=== PATIENT | female | born 1990 | race Caucasian/White ===

== ENCOUNTER 2016-12-13 16:41 | Emergency (ER) | payer OTHER ==
[~2016-12-13] VITALS: Ht 154.9 cm; Wt 100.7 kg
[~2016-12-13 16:41] MED LIST: NAPR500T3 PO; TRAM50TA PO
[2016-12-13 16:52] VITALS: BP 144/81
[2016-12-13] MEDS ORDERED: CLIN150C14 PO (17:01)
[2016-12-13] MEDS ORDERED: TRAM50TA PO (17:01)
--- NOTE | 2016-12-13 17:02 | PHYS DOC ---
Past History Past Medical History: Other Past Surgical History: No Surgical History Alcohol Use: None Drug Use: None Adult General Chief Complaint Chief Complaint: DENTAL PROBLEM HPI HPI Patient is a 26-year-old female presenting to the emergency department for evaluation of right lower molar pain that started today status post biting a piece of meat and a chip of her tooth came off. She says that she thinks that there is some pus that came out. There is no swelling to her mouth and she denies any fevers chills nausea vomiting. Review of Systems Review of Systems Constitutional: Denies fever or chills [] Allergies Allergies Allergies Coded Allergies Type Severity Reaction Last Updated Verified Penicillins Adverse Reaction Intermediate 02/28/14 Yes Sulfa (Sulfonamide Antibiotics) Adverse Reaction Intermediate 02/28/14 Yes promethazine Adverse Reaction Intermediate 02/28/14 Yes Physical Exam Physical Exam Constitutional: Well developed, well nourished, no acute distress, non-toxic appearance. [] HENT: tooth 31 does have dental fracture with some pulp exposed. There is no periapical abscess. Mild amount of erythema but no swelling noted. EKG EKG [] Radiology/Procedures Radiology/Procedures [] Course & Med Decision Making Course & Med Decision Making Patient with dental fracture and recommended dental paste to help cover the socket. According to [facility] appears that she is getting prescribed tramadol but she denies having any tramadol so I will her prescription for 15 pills of tramadol and told her to take ibuprofen. She says that she hasn't appointment at the dentist in 2 weeks by told her to try calling next week to see if she can get her appointment moved up. Patient told to come back with worsening pain swelling fevers or other general concerns. She verbalized understanding of the above plan. Dragon Disclaimer Dragon Disclaimer This chart was dictated in whole or in part using Voice Recognition software in a busy, high-work load, and often noisy Emergency Department environment. It may contain unintended and wholly unrecognized errors or omissions. Departure Departure: Impression: Primary Impression: Fracture, tooth Disposition: HOME, SELF-CARE Condition: GOOD Referrals: PCP,NO (PCP) Patient Instructions: Dental Fracture Additional Instructions: TAKE 400MG OF IBUPROFEN EVERY 6 HOURS AND THE TRAMADOL FOR BREAKTHROUGH PAIN. Scripts Clindamycin Hcl (CLINDAMYCIN HCL) 150 Mg Capsule 1 CAP PO TID, #21 CAP Prov: MELI MOSELEY DO 12/13/16 Tramadol Hcl (TRAMADOL HCL) 50 Mg Tablet 50 MG PO PRN Q6HRS Y for PAIN, #14 TAB Prov: MELI MOSELEY DO 12/13/16 Problem Qualifiers Primary Impression: Fracture, tooth Encounter type: initial encounter Fracture type: closed Qualified Codes: S02.5XXA - Fracture of tooth (traumatic), initial encounter for closed fracture MELI MOSELEY DO Dec 13, 2016 17:02
== END 2016-12-13 17:35 | disposition home or self-care (01) ==
LOC: ER 16:41
DX: S02.5XXA Fracture of tooth (traumatic), initial encounter for closed fracture (principal); Z88.0 Allergy status to penicillin; Z88.2 Allergy status to sulfonamides; Z88.8 Allergy status to other drugs, medicaments and biological substances; X58.XXXA Exposure to other specified factors, initial encounter; Y93.89 Activity, other specified; Y99.8 Other external cause status; Y92.89 Other specified places as the place of occurrence of the external cause
CPT/HCPCS: 99284

== ENCOUNTER 2017-01-15 16:22 | Emergency (ER) | payer OTHER ==
[~2017-01-15 16:22] MED LIST changes: +CLIN150C14 PO; -NAPR500T3 PO; +NAPR500T4 PO
[2017-01-15] MEDS ORDERED: HYDR-2758 PO (17:26)
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
[2017-01-15 18:00] VITALS: BP 136/64
[2017-01-15] MEDS ORDERED: ACETAMINOPHEN 500 MG TABLET PO ONE (18:30)
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
== END 2017-01-15 20:17 | disposition home or self-care (01) ==
LOC: ER 16:22
DX: M54.5 Low back pain (principal); Z88.6 Allergy status to analgesic agent; Z88.4 Allergy status to anesthetic agent; Z88.0 Allergy status to penicillin; Z88.2 Allergy status to sulfonamides; V89.2XXA Person injured in unspecified motor-vehicle accident, traffic, initial encounter; Y93.89 Activity, other specified; Y99.8 Other external cause status; Y92.410 Unspecified street and highway as the place of occurrence of the external cause
CPT/HCPCS: 72100; 81025; 99284

== ENCOUNTER 2017-06-20 10:29 | Emergency (ER) | payer OTHER ==
[~2017-06-20] VITALS: Ht 154.9 cm; Wt 99.3 kg
[~2017-06-20 10:29] MED LIST changes: +HYDR-2758 PO; +NAPR-514 PO; -NAPR500T4 PO
[2017-06-20 10:39] VITALS: BP 148/93
[2017-06-20] MEDS ORDERED: Percogesic PO (11:16)
[2017-06-20] MEDS ORDERED: CEPH-264 PO (11:16)
--- NOTE | 2017-06-20 11:16 | PHYS DOC ---
Past History Past Medical History: Other Additional Past Medical Histor: Chronic abdominal and back pain Smoking: Greater than 1 pack/day Alcohol Use: None Drug Use: None Adult General Chief Complaint Chief Complaint: DENTAL PROBLEM [facility] 26-year-old female patient with history of smoking complaining of broken tooth in left lower molar #3 about 2 months ago while eating fish and having pain in the same area for the last 2 days as a constant and sharp pain with radiation to left ear without fever and chills, nausea and vomiting, sore problem. Patient states he took Orajel and [id number] pain medication without improvement of her condition. Patient rated her pain 10 over 10. Patient states she had the same problem in the other side of her mouth and called her dentist today and got an appointment 2 weeks from now. Review of Systems Review of Systems Constitutional: Denies fever or chills [] Eyes: Denies change in visual acuity, redness, or eye pain [] HENT: Denies nasal congestion or sore throat [] Respiratory: Denies cough or shortness of breath [] Cardiovascular: No additional information not addressed in HPI [] GI: Denies abdominal pain, nausea, vomiting, bloody stools or diarrhea [] : Denies dysuria or hematuria [] Musculoskeletal: Denies back pain or joint pain [] Integument: Denies rash or skin lesions [] Neurologic: Denies headache, focal weakness or sensory changes [] Endocrine: Denies polyuria or polydipsia [] All other systems were reviewed and found to be within normal limits, except as documented in this note. Allergies Allergies Allergies Coded Allergies Type Severity Reaction Last Updated Verified clindamycin Allergy Mild 01/15/17 No tramadol Allergy Unknown 01/15/17 Yes Penicillins Adverse Reaction Intermediate 02/28/14 Yes Sulfa (Sulfonamide Antibiotics) Adverse Reaction Intermediate 02/28/14 Yes promethazine Adverse Reaction Intermediate 02/28/14 Yes Physical Exam Physical Exam Constitutional: Well developed, well nourished, mild distress, non-toxic appearance. [] HENT: Normocephalic, atraumatic, bilateral external ears normal, oropharynx moist, no oral exudates, left lower molar #3 with a large cavity without sign of abscess Eyes: PERRLA, EOMI, conjunctiva normal, no discharge. [] Neck: Normal range of motion, no tenderness, supple, no stridor. [] Cardiovascular:Heart rate regular rhythm, no murmur [] Lungs & Thorax: Bilateral breath sounds clear to auscultation [] Neurologic: Alert and oriented X 3, normal motor function, normal sensory function, no focal deficits noted. [] Psychologic: Affect normal, judgement normal, mood normal. [] Current Patient Data Vital Signs Vital Signs Date Time Temp Pulse Resp B/P (MAP) Pulse Ox O2 Delivery O2 Flow Rate FiO2 06/20/17 10:39 98.2 98 18 96 Room Air EKG EKG [] Radiology/Procedures Radiology/Procedures [] Course & Med Decision Making Course & Med Decision Making Elevation of patient in ER showed 26-year-old smoking female patient complaining of dental pain. Patient had dental cavity without abscess. Dental block with 0.5% bupivacaine was done and patient felt better[. Instructed to quit smoking and follow with her dentist as scheduled. Prescription for Keflex and Percogesic was given. Dragon Disclaimer Dragon Disclaimer This electronic medical record was generated, in whole or in part, using a voice recognition dictation system. Departure Departure: Impression: Primary Impression: Dentalgia Additional Impressions: Dental cavity Tobacco abuse Tobacco abuse counseling Disposition: HOME, SELF-CARE (At 1114) Condition: IMPROVED Referrals: [facility] (PCP) Patient Instructions: Dental Caries, Smoking Cessation, Tips For Success, Toothache-Brief Additional Instructions: Quit smoking Follow-up with your primary care physician in 3-5 days Return to ER if not getting better Scripts [Percogesic] No Conflict Check 1 TAB PO TID PRN Y for PAIN, #14 TAB Prov: SALAZAR CARBONE MD 06/20/17 Cephalexin (KEFLEX) 500 Mg Capsule 1 CAP PO TID, #21 CAP Prov: SALAZAR CARBONE MD 06/20/17 Problem Qualifiers SALAZAR CARBONE MD Jun 20, 2017 11:16
== END 2017-06-20 11:25 | disposition home or self-care (01) ==
LOC: ER 10:29
DX: K02.9 Dental caries, unspecified (principal); G89.29 Other chronic pain; F17.210 Nicotine dependence, cigarettes, uncomplicated; Z71.6 Tobacco abuse counseling; Z88.0 Allergy status to penicillin; Z88.2 Allergy status to sulfonamides; Z88.6 Allergy status to analgesic agent; Z88.4 Allergy status to anesthetic agent
CPT/HCPCS: 64400; 99284

== ENCOUNTER 2017-08-19 21:35 | Emergency (ER) | payer OTHER ==
[~2017-08-19] VITALS: Ht 154.9 cm; Wt 99.8 kg
[2017-08-19 21:35] VITALS: BP 146/84
[~2017-08-19 21:35] MED LIST changes: +CEPH-264 PO; +Percogesic PO
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
== END 2017-08-19 22:09 | disposition home or self-care (01) ==
LOC: ER 21:35
DX: S19.9XXA Unspecified injury of neck, initial encounter (principal); F17.200 Nicotine dependence, unspecified, uncomplicated; Z88.1 Allergy status to other antibiotic agents; Z88.0 Allergy status to penicillin; Z88.6 Allergy status to analgesic agent; Z88.4 Allergy status to anesthetic agent; Z88.2 Allergy status to sulfonamides; G89.29 Other chronic pain; W50.0XXA Accidental hit or strike by another person, initial encounter; Y93.72 Activity, wrestling; Y99.8 Other external cause status; Y92.89 Other specified places as the place of occurrence of the external cause
CPT/HCPCS: 99281

== ENCOUNTER → 2018-11-05 | Outpatient (CLI) | payer OTHER ==
[~2018-11-05] MED LIST changes: +HYDR-2155 PO; -HYDR-2758 PO
--- NOTE | 2018-11-05 12:19 | RAD ---
Exam: Thoracic spine Date: 11/05/2018 12:00 AM CLINICAL HISTORY: COMPARISON: None available. FINDINGS: AP and lateral/swimmers views of the thoracic spine submitted. Moderate superimposed artifact at the cervicothoracic junction on the lateral view based on technique. Exam shows preserved disc height throughout. Negative degenerative/proliferative changes. Negative compression fracture. Negative malalignment. Negative focal paraspinal line deviation/hematoma. IMPRESSION: No evidence for acute fracture or subluxation. EXAM: AP, lateral and lumbosacral spot views of the lumbar spine DATE: 11/05/2018 12:00 AM INDICATION: back pain COMPARISON: No Prior FINDINGS: There are 5 nonrib-bearing lumbar-type vertebral bodies. Vertebral body heights are preserved. No evidence for acute fracture. Mild straightening of the normal lumbar lordosis. No spondylolisthesis. Moderate colonic stool content is seen. IMPRESSION: No evidence for acute fracture or subluxation. Electronically signed by: Joe Cook MD (11/05/2018 12:16 PM) [facility]
== END | disposition home or self-care (01) ==
LOC: RAD 09:01
PROVIDERS: ATTEND Registered Nurse
DX: M54.9 Dorsalgia, unspecified (principal)
CPT/HCPCS: 72072; 72100

== ENCOUNTER → 2018-12-31 | Outpatient (CLI) | payer OTHER ==
--- NOTE | 2019-01-01 08:35 | RAD ---
EXAM: AP and lateral views right foot DATE: 12/31/2018 12:00 AM INDICATION: Dropped metal on foot 3.5 weeks ago. Right foot pain COMPARISON: No Prior FINDINGS/ IMPRESSION: 1. No evidence of acute fracture or dislocation. 2. Joint spaces are preserved without significant degenerative/proliferative change. 3. Sclerotic focus third metatarsal head, likely bone island. 4. No definite retained radiopaque foreign body is identified. Electronically signed by: Joe Cook MD (01/01/2019 8:32 AM) [facility]
== END | disposition home or self-care (01) ==
LOC: DXRAD 14:26
PROVIDERS: ATTEND Registered Nurse
DX: M79.671 Pain in right foot (principal)
CPT/HCPCS: 73620

== ENCOUNTER 2020-11-22 12:30 | Emergency (ER) | payer OTHER ==
[~2020-11-22] VITALS: Ht 154.9 cm; Wt 100.0 kg
[~2020-11-22 12:30] MED LIST changes: -CLIN150C14 PO; +CLIN150C16 PO
[2020-11-22 12:38] VITALS: BP 131/94
--- NOTE | 2020-11-22 13:58 | PHYS DOC ---
Past History Past Medical History: No Pertinent History Additional Past Medical Histor: Chronic abdominal and back pain Past Surgical History: Smoking: Greater than 1 pack/day Alcohol Use: None Drug Use: None Adult General Chief Complaint Chief Complaint: DENTAL PROBLEM HPI HPI Patient is a 30-year-old female patient who presents with dental pain. Patient states she has had problems with this tooth for several weeks, however has gotten worse over last couple days. States she has appointment to see a dentist to have most of her teeth removed on 11/30/2020. States she has had 2 infections in the past, and she has been on clindamycin for with good results. States she is denies any fevers. States she just has loss of appetite because she has discomfort when trying to eat. States her tooth just broke recently. She has been taking Tylenol, with little relief. Review of Systems Review of Systems Constitutional: Denies fever or chills [] Eyes: Denies change in visual acuity, redness, or eye pain [] HENT: Denies nasal congestion or sore throat [] complains of left lower dental pain Respiratory: Denies cough or shortness of breath [] Cardiovascular: No additional information not addressed in HPI [] GI: Denies abdominal pain, nausea, vomiting, bloody stools or diarrhea [] : Denies dysuria or hematuria [] Musculoskeletal: Denies back pain or joint pain [] Integument: Denies rash or skin lesions [] Neurologic: Denies headache, focal weakness or sensory changes [] Endocrine: Denies polyuria or polydipsia [] All other systems were reviewed and found to be within normal limits, except as documented in this note. Allergies Allergies Allergies Coded Allergies Type Severity Reaction Last Updated Verified clindamycin Allergy Mild 01/15/17 No tramadol Allergy Unknown 01/15/17 Yes Penicillins Adverse Reaction Intermediate 02/28/14 Yes Sulfa (Sulfonamide Antibiotics) Adverse Reaction Intermediate 02/28/14 Yes promethazine Adverse Reaction Intermediate 02/28/14 Yes Physical Exam Physical Exam Constitutional: Well developed, well nourished, no acute distress, non-toxic appearance. [] HENT: Normocephalic, atraumatic, bilateral external ears normal, oropharynx moist, no oral exudates, nose normal. [] Fractured tooth that #21. Tenderness surrounding gum. No swelling of the gum noted. Tooth is broken off at the gumline. Eyes: PERRLA, EOMI, conjunctiva normal, no discharge. [] Neck: Normal range of motion, no tenderness, supple, no stridor. [] Cardiovascular:Heart rate regular rhythm, no murmur [] Lungs & Thorax: Bilateral breath sounds clear to auscultation [] Abdomen: Bowel sounds normal, soft, no tenderness, no masses, no pulsatile masses. [] Extremities: No tenderness, no cyanosis, no clubbing, ROM intact, no edema. [] Neurologic: Alert and oriented X 3, normal motor function, normal sensory function, no focal deficits noted. [] Psychologic: Affect normal, judgement normal, mood normal. [] Current Patient Data Vital Signs Vital Signs Date Time Temp Pulse Resp B/P (MAP) Pulse Ox O2 Delivery O2 Flow Rate FiO2 11/22/20 12:38 97.6 100 12 131/94 98 Room Air EKG EKG [] Radiology/Procedures Radiology/Procedures [] Heart Score C/O Chest Pain: No Risk Factors: Risk Factors: DM, Current or recent (<one month) smoker, HTN, HLP, family history of CAD, obesity. Risk Scores: Risk Factors: DM, Current or recent (<one month) smoker, HTN, HLP, family history of CAD, obesity. Course & Med Decision Making Course & Med Decision Making Pertinent Labs and Imaging studies reviewed. (See chart for details) [] Patient has follow-up with dentist in 8 days, will start patient antibiotics at this time. Patient has been on clindamycin for, despite being on her allergy list. She states she has been on clindamycin in the past, and has tolerated it well. Provided dental block to patient for discomfort, she will continue to take Tylenol ibuprofen for her discomfort, and has follow-up with her dentist. Dragon Disclaimer Dragon Disclaimer This electronic medical record was generated, in whole or in part, using a voice recognition dictation system. - Dental block using 0.5% bupivacaine. 3 mL of bupivacaine injected to left posterior alveolar space, with improved discomfort noted to patient. Well- tolerated by patient. Departure Departure: Impression: Primary Impression: Dentalgia Additional Impression: Fractured tooth Disposition: HOME / SELF CARE / HOMELESS Condition: STABLE Referrals: SONYA WILDER MD (PCP) Patient Instructions: Dental Caries Additional Instructions: As discussed, take antibiotics as prescribed prescribed for the entire duration. Continue to take Tylenol or ibuprofen for your discomfort. Be careful when you are trying to eat or drink after the shot, as you are more likely to bite her tongue or cause trauma to it. Follow-up with primary care for things. Make sure you keep her dental appointment on 11/30 As we discussed, consider taking probiotics or eating a yogurt with active cultures to prevent yeast infection from the strong antibiotics. Scripts Clindamycin Hcl (CLINDAMYCIN HCL) 300 Mg Capsule 300 MG PO Q8HRS for dental infection for 7 Days, #21 CAP Prov: ARMIDA KAHN APRN 11/22/20 Problem Qualifiers Additional Impression: Fractured tooth Encounter type: initial encounter Fracture type: closed Qualified Codes: S02.5XXA - Fracture of tooth (traumatic), initial encounter for closed fracture ARMIDA KHAN APRN Nov 22, 2020 13:57
[2020-11-22] MEDS ORDERED: BUPIVACAINE MPF 0.5% 30 ML VIAL. INFIL ONE (14:00)
[2020-11-22] MEDS ORDERED: CLIN300C9 PO (14:28)
== END 2020-11-22 14:37 | disposition home or self-care (01) ==
LOC: ER 12:30
DX: S02.5XXA Fracture of tooth (traumatic), initial encounter for closed fracture (principal); F17.200 Nicotine dependence, unspecified, uncomplicated; Z88.1 Allergy status to other antibiotic agents; Z88.0 Allergy status to penicillin; Z88.8 Allergy status to other drugs, medicaments and biological substances; X58.XXXA Exposure to other specified factors, initial encounter; Y93.89 Activity, other specified; Y92.89 Other specified places as the place of occurrence of the external cause; Y99.8 Other external cause status
CPT/HCPCS: 64400; 99284; J3490

== ENCOUNTER 2021-04-14 16:39 | Emergency (ER) | payer OTHER ==
[~2021-04-14] VITALS: Ht 154.9 cm; Wt 105.5 kg
[~2021-04-14 16:39] MED LIST changes: +CLIN-95 PO
[2021-04-14 17:11] VITALS: BP 120/71
--- NOTE | 2021-04-14 17:11 | PHYS DOC ---
Past History Past Medical History: No Pertinent History Additional Past Medical Histor: Chronic abdominal and back pain Past Surgical History: Smoking: Greater than 1 pack/day Alcohol Use: None Drug Use: None Adult General Chief Complaint Chief Complaint: DENTAL PROBLEM HPI HPI Patient is a 30-year-old female presents emergency department complaining of a dental infection near her broken tooth upper right side, patient reports she has multiple broken teeth related to a calcium deficiency during a previous , patient reports she sees a dentist and is having them fixed, patient reports the repair process will take some time, patient reports she noticed an infection near one of her broken teeth 4 days ago, patient is requesting clindamycin antibiotics. Patient denies numbness to her face tongue or mouth, denies fever or chills, denies other physical complaints or physical concerns. Patient does report being a cigarette smoker, denies alcohol or illicit drug use. Review of Systems Review of Systems 14 body systems of review of systems have been reviewed. See HPI for pertinent positives and negative responses, otherwise all other systems are negative, nonpertinent or noncontributory. Constitutional: Negative except as outlined in HPI above. Skin: Negative except as outlined in HPI above. Eyes: Negative except as outlined in HPI above. HENT: Negative except as outlined in HPI above. Respiratory: Negative except as outlined in HPI above. Cardiovascular: Negative except as outlined in HPI above. GI: Negative except as outlined in HPI above. : Negative except as outlined in HPI above. Musculoskeletal: Negative except as outlined in HPI above. Integument: Negative except as outlined in HPI above. Neurologic: Negative except as outlined in HPI above. Endocrine: Negative except as outlined in HPI above. Lymphatic: Negative except as outlined in HPI above. Psychiatric: Negative except as outlined in HPI above. Allergies Allergies Allergies Coded Allergies Type Severity Reaction Last Updated Verified clindamycin Allergy Mild 01/15/17 No tramadol Allergy Unknown 01/15/17 Yes Penicillins Adverse Reaction Intermediate 02/28/14 Yes Sulfa (Sulfonamide Antibiotics) Adverse Reaction Intermediate 02/28/14 Yes promethazine Adverse Reaction Intermediate 02/28/14 Yes Physical Exam Physical Exam Constitutional: Appears well, nontoxic, uncomfortable. HENT: Normocephalic, atraumatic, bilateral external ears normal, oropharynx moist, no oral exudates, nose normal. Uvula midline. No trismus. No drooling. Maintaining secretions. No phonation changes. No facial swelling. No periapical abscess. Broken tooth #6 with swelling at the gum, no purulent drainage appreciated. Eyes: PERRLA, EOMI, conjunctiva normal, no discharge. Neck: Normal range of motion, trachea midline, normal ROM, no stridor, no nuchal rigidity, no meningeal signs. Cardiovascular: Normal peripheral perfusion, no cyanosis appreciated. Lungs & Thorax: Normal WOB. No tachypnea. No audible adventitious lung sounds appreciated, no respiratory distress appreciated. Skin: Warm, dry, no erythema, no rash, normal for ethnicity. Musculoskeletal: Normal ROM. Neurologic: Alert and oriented X 3, normal motor function, normal sensory function, no focal deficits noted. Psychologic: Affect normal, judgement normal, mood normal. Current Patient Data Vital Signs Vital Signs Date Time Temp Pulse Resp B/P (MAP) Pulse Ox O2 Delivery O2 Flow Rate FiO2 04/14/21 17:06 98.6 99 16 99 EKG EKG [] Radiology/Procedures Radiology/Procedures [] Heart Score C/O Chest Pain: No Risk Factors: Risk Factors: DM, Current or recent (<one month) smoker, HTN, HLP, family history of CAD, obesity. Risk Scores: Risk Factors: DM, Current or recent (<one month) smoker, HTN, HLP, family history of CAD, obesity. Course & Med Decision Making Course & Med Decision Making Pertinent Labs and Imaging studies reviewed. (See chart for details) 30-year-old female, vital signs reviewed, presents to the emergency department complaining of a dental infection. Physical exam consistent with dental infection at tooth #6. Will give pain medication and first antibiotic in the ED today, will prescribe clindamycin regimen, ibuprofen for pain at home, strict follow-up with dentist, patient gave verbal understanding of and is amenable to ED discharge planning. Discussed with the patient all findings and diagnostic testing as well as the need to follow-up with their primary care provider for further evaluation and treatment or return to the ED if any new or worsening symptoms. Strict return precautions were also discussed at length, the patient voiced understanding and agreement with the discharge planning. The patient was nontoxic in appearance, in no apparent distress, and hemodynamically stable at the time of disposition. Dragon Disclaimer Dragon Disclaimer This electronic medical record was generated, in whole or in part, using a voice recognition dictation system. Departure Departure: Impression: Primary Impression: Broken teeth Additional Impressions: Dental infection Pulpitis Dentalgia Disposition: HOME / SELF CARE / HOMELESS Condition: GOOD Referrals: SONYA WILDER MD (PCP) Patient Instructions: Dental Abscess Additional Instructions: You were seen today in the emergency department for a dental infection, continue to keep close follow-up with your dentist for your broken teeth and dental infections. I am starting you on clindamycin antibiotic regimen as we discussed, I am also prescribing you ibuprofen for ongoing dental pain, please see your dentist soon. Thank you for visiting our Emergency Department. It was a pleasure taking care of you today in the emergency department and we appreciate you trusting us with your care. If any additional problems come up don't hesitate to return to visit us. Please follow up with your primary care provider so they can plan additional care if needed and know about the problem that you had. If symptoms worsen come back to the Emergency Department. Any concerning symptoms that start such as chest pain, shortness of air, weakness or numbness on one side of the body, running high fevers or any other concerning symptoms return to the ER. Scripts Ibuprofen (IBUPROFEN) 600 Mg Tablet 600 MG PO PRN Q4-6HRS PRN for PAIN, #30 TAB 0 Refills Prov: LISA CUELLAR APRN 04/14/21 Clindamycin Hcl (CLINDAMYCIN HCL) 150 Mg Capsule 3 CAP PO TID for dental infection for 14 Days, #126 CAP 0 Refills Prov: LISA CUELLAR APRN 04/14/21 Problem Qualifiers Primary Impression: Broken teeth Encounter type: initial encounter Fracture type: open Qualified Codes: S02.5XXB - Fracture of tooth (traumatic), initial encounter for open fracture LISA CUELLAR APRN Apr 14, 2021 17:10
[2021-04-14] MEDS ORDERED: CLINDAMYCIN HCL 150 MG CAPSULE PO ONE (17:15)
[2021-04-14] MEDS ORDERED: HYDROcodone/APAP 5/325MG 1 TAB TABLET PO ONE (17:15)
[2021-04-14] MEDS ORDERED: IBUPROFEN 600 MG TABLET. PO ONE ×2 (17:15→17:21)
[2021-04-14] MEDS ORDERED: CLIN150C16 PO (17:19)
[2021-04-14] MEDS ORDERED: IBUP600T16 PO (17:19)
[2021-04-14] MEDS ORDERED: CLINDAMYCIN HCL 150 MG CAPSULE ONE (17:21)
[2021-04-14] MEDS ORDERED: HYDROcodone/APAP 5/325MG 1 TAB TABLET ONE (17:21)
== END 2021-04-14 17:26 | disposition home or self-care (01) ==
LOC: ER 16:39
DX: S02.5XXA Fracture of tooth (traumatic), initial encounter for closed fracture (principal); K04.7 Periapical abscess without sinus; K04.01 Reversible pulpitis; F17.200 Nicotine dependence, unspecified, uncomplicated; G89.29 Other chronic pain; Z88.1 Allergy status to other antibiotic agents; Z88.6 Allergy status to analgesic agent; Z88.0 Allergy status to penicillin; Z88.2 Allergy status to sulfonamides; Z88.8 Allergy status to other drugs, medicaments and biological substances; X58.XXXA Exposure to other specified factors, initial encounter; Y93.89 Activity, other specified; Y92.89 Other specified places as the place of occurrence of the external cause; Y99.8 Other external cause status
CPT/HCPCS: 99284

== ENCOUNTER 2021-05-05 14:12 | Emergency (ER) | payer OTHER ==
[~2021-05-05] VITALS: Ht 154.9 cm; Wt 117.0 kg
[2021-05-05 14:12] VITALS: BP 153/81
[~2021-05-05 14:12] MED LIST changes: +IBUP600T16 PO
--- NOTE | 2021-05-05 14:30 | PHYS DOC ---
Past History Past Medical History: No Pertinent History Additional Past Medical Histor: Chronic abdominal and back pain Past Surgical History: Smoking: Greater than 1 pack/day Alcohol Use: None Drug Use: None General Adult EDM: Chief Complaint: COUGH HPI: HPI: 30-year-old female presents with fever, body aches, cough for the last 3 days. The patient lost her sense of taste last night. She is not vaccinated against COVID-19. She denies chest pain or shortness of breath. Review of Systems: Review of Systems: Constitutional: Fever, body aches, fatigue Eyes: Denies change in visual acuity HENT: Denies nasal congestion or sore throat Respiratory: Cough without shortness of breath Cardiovascular: Denies chest pain or edema GI: Denies abdominal pain, nausea, vomiting, bloody stools or diarrhea : Denies dysuria Musculoskeletal: Denies back pain or joint pain Integument: Denies rash Neurologic: Denies headache, focal weakness or sensory changes Endocrine: Denies polyuria or polydipsia Lymphatic: Denies swollen glands Psychiatric: Denies depression or anxiety Allergies: Allergies: Allergies Coded Allergies Type Severity Reaction Last Updated Verified tramadol Allergy Unknown 01/15/17 Yes Penicillins Adverse Reaction Intermediate 02/28/14 Yes Sulfa (Sulfonamide Antibiotics) Adverse Reaction Intermediate 02/28/14 Yes promethazine Adverse Reaction Intermediate 02/28/14 Yes Physical Exam: PE: Constitutional: Well developed, well nourished, morbidly obese, no acute distress, non-toxic appearance. [] HENT: Normocephalic, atraumatic, bilateral external ears normal, oropharynx moist, no oral exudates, nose normal. [] Eyes: PERRLA, EOMI, conjunctiva normal, no discharge. [] Neck: Normal range of motion, no tenderness, supple, no stridor. [] Cardiovascular: Heart rate regular rhythm, no murmur [] Lungs & Thorax: Bilateral breath sounds clear to auscultation [] Abdomen: Bowel sounds normal, soft, no tenderness, no masses, no pulsatile masses. [] Skin: Warm, dry, no erythema, no rash. [] Back: No tenderness, no CVA tenderness. [] Extremities: No tenderness, no cyanosis, no clubbing, ROM intact, no edema. [] Neurologic: Alert and oriented X 3, normal motor function, normal sensory function, no focal deficits noted. [] Psychologic: Affect normal, judgement normal, mood normal. [] Current Patient Data: Vital Signs: Vital Signs Date Time Temp Pulse Resp B/P (MAP) Pulse Ox O2 Delivery O2 Flow Rate FiO2 05/05/21 14:12 100.8 115 18 153/81 (105) 100 Room Air EKG: EKG: [] Radiology/Procedures: Radiology/Procedures: [] Impressions: XR CHEST 1V INDICATION: COVID-19 COMPARISON STUDY: None. FINDINGS: Lungs: Normal lung volume. No pulmonary mass or consolidation. The tracheobronchial tree and hilar structures are normal. Pleura: No pleural effusion or pneumothorax. Heart and Mediastinum: The cardiomediastinal silhouette is normal. The great vessels of the thorax are normal. IMPRESSION: No confluent consolidation. Electronically signed by: Ivonne Masters MD (05/05/2021 2:55 PM) [facility] DICTATED AND SIGNED BY: IVONNE MASTERS MD DATE: 05/05/21 1454 CC: TUAN FARAH DO; SONYA WILDER MD ~MTH0 0 Heart Score: C/O Chest Pain: N/A Risk Factors: Risk Factors: DM, Current or recent (<one month) smoker, HTN, HLP, family history of CAD, obesity. Risk Scores: Score 0 - 3: 2.5% MACE over next 6 weeks - Discharge Home Score 4 - 6: 20.3% MACE over next 6 weeks - Admit for Clinical Observation Score 7 - 10: 72.7% MACE over next 6 weeks - Early Invasive Strategies Course & Med Decision Making: Course & Med Decision Making Pertinent Labs and Imaging studies reviewed. (See chart for details) Patient's chest x-ray is negative for acute findings. The patient is positive for COVID-19. I have advised supportive care and isolation at home. She is stable for discharge at this time. [] Dragon Disclaimer: Dragon Disclaimer: This electronic medical record was generated, in whole or in part, using a voice recognition dictation system. Departure Departure: Impression: Primary Impression: COVID-19 Disposition: HOME / SELF CARE / HOMELESS Condition: STABLE Referrals: SONYA WILDER MD (PCP) Patient Instructions: Viral Syndrome Additional Instructions: You have been tested for or diagnosed with COVID-19. It is an infection caused by a new type of coronavirus. COVID-19 will cause cold-like or mild flu symptoms in most. It can cause more severe symptoms like problems breathing in some. There is no treatment for COVID-19. The body will clear the infection over time. Self-care will help to ease discomfort. Steps to Take: Self-Care Rest as needed. Healthy habits may help you feel better. Steps include: Choose healthy foods including fruits and vegetables. Drink water throughout the day. Get plenty of sleep each night. If you smoke, try to quit. It may ease breathing. Avoid alcohol. Keep Others Healthy The virus can spread to others. Droplets are released every time you sneeze or cough. The droplets can get into the mouth, nose, or eyes of people near you and lead to infection. To lower the chances of spreading COVID-19 to others: Stay at home until your doctor has said it is safe to leave. If you tested positive this will mean staying isolated until both of the following are true: At least 7 days have passed since the start of illness. You are free of fever for at least 72 hours without the use of medicine. During this time: - Avoid public areas, events, or transportation. Do not return to work or school until your doctor has said it is safe to do so. - Call ahead if you need to go to a medical center. Let them know you may have COVID-19. It will help them guide you where to go. They may also ask you to wear a facemask when you come to the office. - If you call for emergency medical services, let them know you may have COVID- 19. While at home: - Try to avoid close contact with others. Stay about 6 feet away. - If possible, spend most of your time in a separate room from others. - Use a face mask if you will be in close contact with others such as sharing a room or vehicle. - Have someone wipe down common surfaces in the home. Use household otolaryngology teacher every day on areas like doorknobs, counters, or sinks. - Cough or sneeze into a tissue. Throw the tissue away right after use. If a tissue is not available, cough or sneeze into your elbow. - Wash your hands often. Wash them after sneezing or coughing. Use soap and water and wash for at least 20 seconds. Alcohol based hand freight car cleaner can be used if soap and water is not available. - Do not prepare food for others. Avoid sharing personal items like forks, spoons, or toothbrushes. - Avoid close contact with pets while you are sick. There is no evidence of the virus passing to pets. This is a safety step until more is known about this virus. Isolation can be frustrating. Social interaction can help. Keep in touch with friends and family through phone and tech options. You can still interact with others in your home, just keep a safe distance of about 6 feet. Follow-up: Your doctors office will check in with you to see if there are any changes in your health. You may be asked to keep track of symptoms to share with them. They will also let you know when you are clear to be in public again. Problems to Look Out For: Contact your doctor if your recovery is not going as you expect. Get emergency care if you have problems such as: - Trouble breathing - Nonstop chest pain or pressure - Changes in awareness, confusion, or problems waking - Lips or face have bluish color - Worsening of symptoms If you think you have an emergency, call for emergency medical services right away. As taken from [facility] [place] [facility] TUAN FARAH DO May 05, 2021 14:30
--- NOTE | 2021-05-05 14:57 | RAD ---
XR CHEST 1V INDICATION: COVID-19 COMPARISON STUDY: None. FINDINGS: Lungs: Normal lung volume. No pulmonary mass or consolidation. The tracheobronchial tree and hilar st ructures are normal. Pleura: No pleural effusion or pneumothorax. Heart and Mediastinum: The cardiomediastinal silhouette is normal. The great vessels of the thorax ar e normal. IMPRESSION: No confluent consolidation. Electronically signed by: Eric Syed MD (05/05/2021 2:55 PM) [facility]
[2021-05-05] MEDS ORDERED: ACETAMINOPHEN 500 MG TABLET PO ONE (15:15)
[2021-05-05 15:20] LABS: INFLUENZA A PATIENT NEGATIVE (NEGATIVE); INFLUENZA B PATIENT NEGATIVE (NEGATIVE)
== END 2021-05-05 15:37 | disposition home or self-care (01) ==
LOC: ER 14:12
DX: U07.1 COVID-19 (principal); F17.200 Nicotine dependence, unspecified, uncomplicated; Z88.0 Allergy status to penicillin; Z88.2 Allergy status to sulfonamides; Z88.5 Allergy status to narcotic agent; Z87.898 Personal history of other specified conditions
CPT/HCPCS: 71045; 87428; 99284-25

== ENCOUNTER 2021-05-20 09:19 | Emergency (ER) | payer OTHER ==
[~2021-05-20] VITALS: Ht 154.9 cm; Wt 105.7 kg
[2021-05-20 09:19] VITALS: BP 114/68
--- NOTE | 2021-05-20 10:00 | RAD ---
3 views facial bones dated 05/20/2021. COMPARISON: None. INDICATION: Pain after injury. FINDINGS: 3 views facial bones show no evidence of displaced fracture. Paranasal sinuses are grossly clear. Man dible intact. No apparent calvarial abnormality. IMPRESSION: No plain film evidence of displaced facial fracture. If there is persistent clinical concern, CT woul d be more accurate. Electronically signed by: Nando Berg MD (05/20/2021 9:58 AM) [id number]
[2021-05-20] MEDS ORDERED: HYDR-2759 PO (10:07)
[2021-05-20] MEDS ORDERED: CLIN-95 PO (10:07)
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
[2021-05-20] MEDS: HYDROcodone/APAP 5/325MG 1 TAB TABLET PO ONE (10:15)
[2021-05-20] MEDS: CLINDAMYCIN HCL 150 MG CAPSULE PO ONE (10:15)
[2021-05-20] MEDS ORDERED: BUPIVACAINE PF 0.75% 10 ML VIAL ONE (10:23)
[2021-05-20] MEDS: BUPIVACAINE PF 0.75% 10 ML VIAL IJ ONE (10:34)
== END 2021-05-20 10:35 | disposition home or self-care (01) ==
LOC: ER 09:19
DX: K04.7 Periapical abscess without sinus (principal); F17.200 Nicotine dependence, unspecified, uncomplicated; G89.29 Other chronic pain; Z88.6 Allergy status to analgesic agent; Z88.0 Allergy status to penicillin; Z88.2 Allergy status to sulfonamides; Z88.8 Allergy status to other drugs, medicaments and biological substances
CPT/HCPCS: 70150; 96372; 99283; J3490